=== PATIENT | male | born 1960 ===

== ENCOUNTER 2016-05-30 03:20 | Emergency (ER) | payer SELFPAY ==
[2016-05-30 03:37] VITALS: BP 158/92; PULSE 77; RESP 18; TEMP 97.5; O2SAT 98
[2016-05-30] MEDS ORDERED: Sodium Chloride 0.9% 1,000 ML IV STA (04:10)
--- NOTE | 2016-05-30 04:29 | ED PDOC ---
HPI: Back Time Seen by Provider: 05/30/16 04:00 Chief Complaint (Nursing): Male Genitourinary Chief Complaint (Provider): back pain History Per: Patient History/Exam Limitations: no limitations Onset/Duration Of Symptoms: Days (1 week) Current Symptoms Are (Timing): Still Present Quality Of Discomfort: "Pain" Exacerbating Factor(s): Turning, Movement Additional History Per: Patient Additional Complaint(s): 55 y/o male presents with right back/flank pain x 1 week. Patient notes pain to radiate to right groin, right testicle. Patient notes pain worsened after falling down a few steps 5 days ago. No relief with Tylenol. Denies fever, nausea/vomiting, changes in bowel movements, dysuria, hematuria, penile discharge. Past Medical History Reviewed: Historical Data, Nursing Documentation, Vital Signs Vital Signs: Last Vital Signs Temp 97.5 F L 05/30/16 03:35 Pulse 77 05/30/16 03:35 Resp 18 05/30/16 03:35 BP 158/92 H 05/30/16 03:35 Pulse Ox 98 05/30/16 03:35 - Medical History PMH: No Chronic Diseases - Surgical History Surgical History: Hernia Repair - Family History Family History: States: Unknown Family Hx - Allergies Allergies/Adverse Reactions: Allergies Allergy/AdvReac Type Severity Reaction Status Date / Time No Known Allergies Allergy Verified 05/30/16 03:35 Review of Systems ROS Statement: Except As Marked, All Systems Reviewed And Found Negative Genitourinary Male: Positive for: Scrotal Pain Musculoskeletal: Positive for: Back Pain Physical Exam - Reviewed Nursing Documentation Reviewed: Yes Vital Signs Reviewed: Yes - Physical Exam Appears: Positive for: Well, Non-toxic, No Acute Distress Head Exam: Positive for: ATRAUMATIC, NORMAL INSPECTION, NORMOCEPHALIC Skin: Positive for: Normal Color Eye Exam: Positive for: Normal appearance ENT: Positive for: Normal ENT Inspection Cardiovascular/Chest: Positive for: Regular Rate, Rhythm Respiratory: Positive for: Normal Breath Sounds Gastrointestinal/Abdominal: Positive for: Bowel Sounds, Soft, Tenderness (right flank) Male Genital Exam: Positive for: inguinal tenderness (b/l), testicular tenderness (R), testicular tenderness (L), other (cremasteric reflex present b/ l. Exam chaperoned by James air sealing technician). Negative for: urethral discharge Back: Positive for: R CVA Tenderness, Decreased ROM (due to pain), Muscle Spasm (right lspine paraspinal). Negative for: Vertebral Tenderness Extremity: Positive for: Normal ROM Neurologic/Psych: Positive for: Alert, Oriented - Laboratory Results Result Diagrams: 05/30/16 04:47 05/30/16 04:47 - ECG O2 Sat by Pulse Oximetry: 98 - Progress ED Course And Treament: labs, urine, CT renal protocol EXAM: CT Abdomen and Pelvis Without Intravenous Contrast CLINICAL HISTORY: 55 years old, male; Pain; Abdominal pain; Flank; Right; Additional info: Right flank pain TECHNIQUE: Axial computed tomography images of the abdomen and pelvis without intravenous contrast. This CT exam was performed using one or more of the following dose reduction techniques: automated exposure control, adjustment of the mA and/or kV according to patient size, and/ or use of iterative reconstruction technique. Coronal and sagittal reformatted images were created and reviewed. EXAM DATE/TIME: Exam ordered 05/30/2016 4:25 AM COMPARISON: No relevant prior studies available. FINDINGS: Lower thorax: No acute findings. ABDOMEN: Liver: Unremarkable. Gallbladder and bile ducts: Unremarkable. No calcified stones. No ductal dilation. Pancreas: Unremarkable. No ductal dilation. Spleen: Unremarkable. No splenomegaly. Adrenals: Unremarkable. No mass. Kidneys and ureters: Potential exophytic cyst left kidney not further characterized Nonobstructive stone material measuring 2 mm in the left kidney. No hydronephrosis. Stomach and bowel: Moderate fecal retention. Appendix: Appendix is not clearly identified. PELVIS: Bladder: Unremarkable. No stones. Reproductive: Unremarkable as visualized. ABDOMEN and PELVIS: Intraperitoneal space: Unremarkable. No free air. No significant fluid collection. Bones/joints: Degenerative changes in the spine and both hips No acute fracture. No dislocation. Soft tissues: Fat containing inguinal hernias. Vasculature: Unremarkable. No abdominal aortic aneurysm. Lymph nodes: Unremarkable. No enlarged lymph nodes. IMPRESSION: 1. Moderate fecal retention. 2. Appendix is not clearly identified. ED OBSERVATION Date of observation admission: 05/30/16 Time of observation admission: 06:07 - Observation admission statement Patient is being placed in observation because:: back pain, testicular pain - Goals of Observation Goals of observation are:: obtain testicular u/s - Progress Note Progress Note: 05/30/16 06:07 Patient resting comfortably, awaiting u/s Disposition - Clinical Impression Clinical Impression: Testicular pain, Back pain, Constipation
[2016-05-30 04:52] LABS: BASO # 0.1 K/uL (0.0-0.2); EOS # 0.2 K/uL (0.0-0.7); EOS % 3.3 % (0.0-4.0); HEMATOCRIT 44.8 % (35.0-51.0); LYMPH # 1.5 K/uL (1.0-4.3); LYMPH % 26.1 % (20.0-40.0); MEAN CELL VOLUME 87.6 fl (80.0-94.0); MEAN CORPUSCULAR HGB CONC 33.1 g/dL (33.0-37.0); MEAN PLATELET VOLUME 8.2 fl (7.2-11.7); MONO # 0.6 K/uL (0.0-0.8); MONO % 10.3 % (0.0-10.0); NEUT # 3.4 K/uL (1.8-7.0); NEUT % 59.3 % (50.0-75.0); NRBC % 0.1 % (0.0-0.0); RED CELL DISTRIBUTION WIDTH 13.4 % (11.5-14.5); WHITE BLOOD COUNT 5.7 K/uL (4.8-10.8)
[2016-05-30 04:55] LABS: RBC URINE 5 /hpf (0-3); URINE BILIRUBIN NEGATIVE (NEGATIVE); URINE BLOOD SMALL (NEGATIVE); URINE COLOR YELLOW (YELLOW); URINE GLUCOSE (UA) NEG (Normal); URINE KETONE NEGATIVE (NEGATIVE); URINE LEUKOCYTE ESTERASE NEG Leu/uL (Negative); URINE PROTEIN 30 mg/dL (NEGATIVE); URINE UROBILINOGEN 0.2-1.0 mg/dL (0.2-1.0); WBC URINE 2 /hpf (0-5)
[2016-05-30 05:01] LABS: ALB/GLOB RATIO 1.1 (1.0-2.1); ALKALINE PHOSPHATASE 69 U/L (38-126); ALT/SGPT 39 U/L (21-72); AST/SGOT 32 U/L (17-59); BILIRUBIN,TOTAL 0.5 mg/dl (0.2-1.3); BLOOD UREA NITROGEN 20 mg/dl (9-20); CARBON DIOXIDE 24 mmol/L (22-30); CHLORIDE 107 mmol/L (98-107); GFR AFRICAN-AMERICAN > 60; GLUCOSE,RANDOM 97 mg/dL (75-110); POTASSIUM 3.9 MMOL/L (3.6-5.0); SODIUM 144 mmol/l (132-148); TOTAL PROTEIN 7.4 G/DL (6.3-8.2)
[2016-05-30] MEDS ORDERED: Magnesium Citrate Oral SOL (300 ml) PO ONE (06:08)
--- NOTE | 2016-05-30 06:10 | ED PDOC ---
- Laboratory Results Result Diagrams: 05/30/16 04:47 05/30/16 04:47 - ECG O2 Sat by Pulse Oximetry: 98 Medical Decision Making Medical Decision Makin;00 Patient signed out to me by Delicia Matias. Pending US 7;00 Patient signed out to Dr. Lopez. Pending US Disposition - Clinical Impression Clinical Impression: Testicular pain, Back pain, Constipation - POA Present On Arrival: None - Disposition Disposition: Transfer of Care Disposition Time: 07:00 Condition: STABLE Patient Signed Over To: Jaquelin Lopez
[2016-05-30] MEDS ORDERED: Magnesium Citrate Oral SOL (300 ml) ONE (07:02)
--- NOTE | 2016-05-30 07:07 | ED PDOC ---
- Laboratory Results Result Diagrams: 05/30/16 04:47 05/30/16 04:47 - ECG O2 Sat by Pulse Oximetry: 98 Medical Decision Making Medical Decision Makin Signed over to me by Liseth Buck MD pending US He presented last night for worsening back pain after fall with pain that radiated to R groin. He had negative CT. 1014 U/s shows L variocele but no mass or torsion. Patient aware and will follow-up with PMD. On reevaluation patient feels well. He is neurologically intact and ambulating around the ED. Denies dysuria or penile discharge. Denies abdominal pain or vomiting. Disposition - Clinical Impression Clinical Impression: Testicular pain, Back pain, Constipation, Left varicocele - POA Present On Arrival: None - Disposition Disposition: Routine/Home Disposition Time: 11:02 Condition: STABLE Additional Instructions: Follow up with PMD within 2 days for referral to urology. Return to ED if condition worsens. Instructions: Varicocele (ED) Additional Comments - Additional Comments Additional Comments: Scribe Attestation: Documented by Mani Foster acting as a scribe for Jaquelin Lopez MD. Scribmichelle Attestation: All medical record entries made by the Scribe were at my direction and personally dictated by me. I have reviewed the chart and agree that the record accurately reflects my personal performance of the history, physical exam, medical decision making, and the department course for this patient. I have also personally directed, reviewed, and agree with the discharge instructions and disposition.
--- NOTE | 2016-05-30 09:51 | CT ---
PROCEDURE: CT Abdomen and Pelvis without intravenous contrast HISTORY: Right flank pain COMPARISON: None. TECHNIQUE: CT scan of the abdomen and pelvis was performed without administration of oral or intravenous contrast. Coronal and sagittal reformatted images were obtained. Radiation dose: Total exam DLP = 474.07 mGy-cm. This CT exam was performed using one or more of the following dose reduction techniques: Automated exposure control, adjustment of the mA and/or kV according to patient size, and/or use of iterative reconstruction technique. FINDINGS: LOWER THORAX: The lung bases are clear. LIVER: The liver is normal in size no. No gross lesion or ductal dilatation. GALLBLADDER AND BILE DUCTS: There are no calcified gallstones. PANCREAS: The pancreas is normal in size without ductal dilatation or calcifications. SPLEEN: The spleen is normal in size. ADRENALS: Both adrenal glands are normal in size without discrete nodule. KIDNEYS AND URETERS: Both kidneys are normal in size without hydronephrosis or right nephrolithiasis. There is are punctate nonobstructing stones in the lower pole of the left kidney. There is a small exophytic cyst in the left lower pole. VASCULATURE: The aorta is normal in caliber. No aortic aneurysm. BOWEL: The small bowel loops are normal in caliber. There is moderate amount of stool in the colon. There is no evidence of bowel dilatation or obstruction. There is colonic diverticulosis without CT evidence for acute diverticulitis. There is moderate amount of stool scattered throughout the colon. APPENDIX: No inflammatory changes in the right lower quadrant. PERITONEUM: No free fluid. No free air. LYMPH NODES: No enlarged lymph nodes. BLADDER: Unremarkable. REPRODUCTIVE: Unremarkable. BONES: No acute fracture. Mild multilevel degenerative disc disease. OTHER FINDINGS: None. IMPRESSION: No acute abdominal or pelvic abnormality. Constipation. No evidence of bowel obstruction. A preliminary report was provided by [facility].
--- NOTE | 2016-05-30 10:08 | US ---
HISTORY: Testicular pain TECHNIQUE: Realtime sonography through the scrotum with color and doppler flow. COMPARISON: None Available. FINDINGS: RIGHT TESTICLE: Measures 4.3 x 2.5 x 1.7 cm. Normal echotexture and flow. RIGHT EPIDIDYMIS: Epididymal head measures 8 x 10 x 8 cm. Normal in size with normal flow. There is a 3 x 2 mm cyst in the head of the epididymis. LEFT TESTICLE: Measures 4.0 x 2.4 x 1.6 cm. Normal echotexture and flow. LEFT EPIDIDYMIS: Epididymal head measures 10 x 7 x 5 cm. Grossly unremarkable appearance with normal flow. HYDROCELE: None. VARICOCELE: There is a left varicocele. OTHER FINDINGS: None. IMPRESSION: No evidence for testicular mass or torsion. Left varicocele.
== END 2016-05-30 10:40 | disposition home or self-care (01) ==
LOC: H.ER 03:20
DX: K59.00 Constipation, unspecified (principal); I86.1 Scrotal varices; N50.819 Testicular pain, unspecified; R10.9 Unspecified abdominal pain
CPT/HCPCS: 74176; 80053; 81003; 85025; 87086; 93975; 96360; 99283; G0480; J1885; J2270; J7040